=== PATIENT | male | born 1965 | race Caucasian/White ===

== ENCOUNTER 2018-03-29 13:00 | Inpatient (IN) | payer MEDICARE, MEDICAID ==
[2018-03-29] MEDS ORDERED: Acetaminophen 500 MG TAB ONE (13:51)
[2018-03-29] MEDS ORDERED: Ibuprofen 200 MG TAB ONE (13:51)
--- NOTE | 2018-03-29 14:20 | RAD ---
RADIOGRAPH CHEST 2 VIEWS: Date: 03/29/18 Time: 1351 hours HISTORY: 52-year-old male with fever and dyspnea. COMPARISON: None available. FINDINGS: There is a focal air space density in the right middle lobe. There is mild haziness, questionable ear ly infiltrate in left lower lobe. Cardiac size within normal limits. No pulmonary edema, pleural effu jacek, or pneumothorax. IMPRESSION: 1. Right middle lobe pneumonia 2. Questionable early left lower lobe pneumonia. RADHA [] POS: JEAN CARLOS
[2018-03-29 14:35] LABS: #Eosinphils 0.1 thou/uL (0.0-0.7); #Lymphocytes 0.8 thou/uL (1.20-3.40); #Monocytes 0.2 thou/uL (0.11-0.59); #Neutrophils 8.9 thou/uL (1.40-6.50); %Basophils 0.1 % (0.0-1.0); %Eosinophils 1.2 % (0.0-10.0); %Lymphocytes 7.8 % (21.0-51.0); Hemoglobin 15.4 g/dL (14.0-18.0); Mean Corpuscular Hemoglobin 27.3 pg (27.0-31.0); Mean Corpuscular Volume 85.1 fL (78.0-98.0); Mean Platelet Volume 8.3 fL (7.4-10.4); Platelet Count 171 thou/uL (130-400); RBC Distribution Width 13.6 % (11.5-14.5); Red Blood Cell (RBC) Count 5.65 mill/uL (4.70-6.10)
[2018-03-29] MEDS ORDERED: Azithromycin 250 MG TAB ONE (14:44)
[2018-03-29] MEDS ORDERED: cefTRIAXone\\ROCEPHIN 2 GM VIAL ONE (14:44)
[2018-03-29 14:55] LABS: ALT (SGPT) 24 U/L (8-55); AST (SGOT) 32 U/L (5-34); Alkaline Phosphatase 69 U/L (40-150); Anion Gap 14 mmol/L (10-20); BUN (Urea Nitrogen) 10 mg/dL (8.4-25.7); Bilirubin, Total 0.5 mg/dL (0.2-1.2); Calc. Creatinine Clearance 0 mL/min (70-130); Calcium 9.3 mg/dL (7.8-10.44); Carbon Dioxide 23 mmol/L (22-29); Chloride 104 mmol/L (98-107); Estimated GFR-MDRD 45; Globulin 4.3 g/dL (2.4-3.5); Glucose 109 mg/dL (70-105); Potassium 4.1 mmol/L (3.5-5.1); Protein, Total 8.3 g/dL (6.0-8.3); Sodium 137 mmol/L (136-145)
[2018-03-29] MEDS ORDERED: HYDROcodone/Acetaminophen 5/325 mg Tablet PO PRN (18:43)
[2018-03-29] MEDS ORDERED: Ondansetron ODT 4 MG TAB PO PRN (18:43)
[2018-03-29] MEDS ORDERED: hydrALAZINE 20 MG/ML VIAL SLOW IVP PRN (18:43)
[2018-03-29] MEDS ORDERED: Ondansetron PF 4 MG/2 ML Vial IVP PRN (18:43)
[2018-03-29] MEDS ORDERED: Calcium Carbonate 500 MG ChewTAB PO PRN (18:43)
[2018-03-29] MEDS ORDERED: Senokot S 8.6-50 MG TAB PO PRN (18:43)
[2018-03-29] MEDS ORDERED: Polyethylene Glycol 3350 17 GM Packet PO PRN (18:47)
[2018-03-29] MEDS ORDERED: Benzonatate 100 MG CAP PO PRN (18:47)
[2018-03-29] MEDS ORDERED: Milk Of Magnesia 30 ML UDCUP PO PRN (18:47)
[2018-03-29] MEDS ORDERED: Eucerin (Mineral Oil/Petrolatum,White) 30 gm Jar TOP PRN (18:47)
[2018-03-29] MEDS ORDERED: Cepastat Lozenges 1 LOZ PO PRN (18:47)
--- NOTE | 2018-03-29 19:41 | HP ---
PRIMARY CARE PHYSICIAN: None. CHIEF COMPLAINT: Flu-like symptoms along with fever of one week duration. HISTORY OF PRESENT ILLNESS: The patient is a 52-year-old male with rheumatoid arthritis, currently not on treatment, presented to the emergency room with above symptoms. Over the last 1 week, the patient has intermittent fever along with chills. He had cough and sore throat. The cough was productive of thick whitish phlegm. He had intermittent chills as well. The patient was getting shortness of breath on moderate exertion. He also complained of wheezing and chest tightness at times. He denies any diaphoresis, nausea, vomiting, recent immobilization, travel. No sick contacts reported. In the emergency room, his initial vital signs showed temperature 102, with pulse rate of 125, blood pressure 193/119, with O2 saturation 100% on room air, respiration of 36. His chest x-ray was consistent with right middle lobe pneumonia with questionable early left lower lobe pneumonia. Influenza testing was negative. He received ceftriaxone with azithromycin in the emergency room with IV fluids. PAST MEDICAL HISTORY: 1. Rheumatoid arthritis per patient's report. His arthritis is mainly in bilateral knees and left shoulder. 2. History of alcohol abuse. 3. Anxiety and depression. PAST SURGICAL HISTORY: Bilateral knee surgeries. ALLERGIES: THE PATIENT IS ALLERGIC TO FLEXERIL. CURRENT HOME MEDICATION: The patient takes [id number] Aleve. SOCIAL HISTORY: The patient is recovering alcoholic. He has been sober for three years, but denies current use of smoking or drug use. FAMILY HISTORY: Negative for premature coronary artery disease. REVIEW OF SYSTEMS: All other review of systems were reviewed and were found negative. PHYSICAL EXAMINATION: VITAL SIGNS: As discussed above. GENERAL: A 52-year-old male with intermittent coughing. Minimal audible wheezing noted. HEENT: Head atraumatic, normocephalic. Sclerae anicteric. Moist mucous membranes. No oral lesion. NECK: Supple. No JVD appreciated. No carotid bruit. LUNGS: Showed right-sided rales and rhonchi with scattered wheezing. No significant accessory muscle use while resting. HEART: S1 and S2 present. Tachycardic. No rubs, gallops, or significant murmurs appreciated. ABDOMEN: Soft. Bowel sounds present. EXTREMITIES: No edema or calf tenderness. NEUROLOGIC: Grossly nonfocal. Moves all 4 extremities. PSYCHIATRIC: Alert, awake, and oriented x3. SKIN: Warm and dry. LYMPH NODES: No palpable lymph nodes in the neck. LABORATORY FINDINGS: CBC showed WBC 10 with hemoglobin 15.4, hematocrit 48.1 with platelet count 171. Neutrophil was 89%. Chemistry showed sodium 137, potassium 4.1, chloride 104, bicarb 23, BUN 10, creatinine 1.61. Influenza testing was negative. DIAGNOSTIC DATA: Chest x-ray by my review showed right middle lobe infiltrate with questionable early left lower lobe infiltrate. EKG by my review showed sinus tachycardia. IMPRESSION: 1. Sepsis, secondary to pneumonia, suspected pneumococcal. 2. Sinus tachycardia, secondary to #1. 3. History of alcohol abuse. 4. Anxiety and depression. The patient denies any suicidal ideation. 5. Acute kidney injury, probably secondary to nonsteroidal anti-inflammatory drugs use along with sepsis. PLAN: The patient will be monitored on the medical floor. We will continue ceftriaxone and azithromycin. We will add nebulizer treatment. IV fluids for acute kidney injury. We will repeat labs in a.m. Vital signs every 4 hourly. Other p.r.n. medications. Plan of care was discussed with the patient and the family at the bedside. They stated understanding. Job ID: [id number]
[2018-03-29] MEDS: guaiFENesin ER 600 MG TAB PO SCH (20:53)
[2018-03-29] MEDS: Sodium Chloride 0.9% 1,000 ML IV SCH (20:55)
[2018-03-29 22:53] VITALS: BMI 30.1
[2018-03-30 03:36] LABS: Legionella Urinary Ag Negative (Negative); Strep pneumo Urine Ag POSITIVE (NEGATIVE)
[2018-03-30] MEDS: Acetaminophen 325 MG TAB PO PRN ×2 (05:35→19:54)
[2018-03-30] MEDS: Sodium Chloride 0.9% 1,000 ML IV SCH (05:35)
[2018-03-30 06:36] LABS: Anion Gap 12 mmol/L (10-20); BUN (Urea Nitrogen) 17 mg/dL (8.4-25.7); Calc. Creatinine Clearance 72 mL/min (70-130); Calcium 8.2 mg/dL (7.8-10.44); Carbon Dioxide 23 mmol/L (22-29); Chloride 108 mmol/L (98-107); Estimated GFR-MDRD 49; Glucose 128 mg/dL (70-105); Potassium 4.6 mmol/L (3.5-5.1); Sodium 138 mmol/L (136-145)
[2018-03-30] MEDS: guaiFENesin ER 600 MG TAB PO SCH ×2 (08:07→19:54)
[2018-03-30 08:15] LABS: Band 47 % (5-11); Hemoglobin 13.6 g/dL (14.0-18.0); Lymphocytes 18 % (21-51); MDiff Complete? YES; Mean Corpuscular HGB CONC 32.3 g/dL (32.0-36.0); Mean Corpuscular Volume 86.7 fL (78.0-98.0); Mean Platelet Volume 8.1 fL (7.4-10.4); Metamyelocyte 5 % (0-0); Monocytes 3 % (0-10); Neutrophil 27 % (42-75); Platelet Count 137 thou/uL (130-400); RBC Distribution Width 13.7 % (11.5-14.5); Red Blood Cell (RBC) Count 4.87 mill/uL (4.70-6.10); Reflex for Review?? YES; White Blood Cell (WBC) Count 12.3 thou/uL (4.8-10.8)
[2018-03-30] MEDS ORDERED: cefTRIAXone\\ROCEPHIN 2 GM in Sodium Chloride 0.9% 100 ML IVPB SCH (09:00)
[2018-03-30] MEDS ORDERED: Azithromycin 500 MG in Sodium Chloride 0.9% 250 ML 250 ML IVPB SCH (09:00)
[2018-03-30] MEDS: Sodium Chloride 0.45% 1,000 ML IV SCH ×2 (10:17→15:50)
[2018-03-30] MEDS ORDERED: Saccharomyces boulardii 250 MG CAP PO SCH (11:00)
--- NOTE | 2018-03-30 13:29 | PDOC.PN ---
- Subjective Encounter Start Date: 03/30/18 Encounter Start Time: 11:00 Patient seen and examined for Sepsis/Pneumonia. Dry cough. SOB on mild exertion. No new complaints. No overnight events - Objective Resuscitation Status - Order Detail: 03/29/18 18:43 Resuscitation Status Routine Resuscitation Status: FULL: Full Resuscitation MAR Reviewed: Yes Vital Signs & Weight: Vital Signs (12 hours) Temp Pulse Resp BP BP Pulse Ox 03/30/18 12:00 97.7 F 96 18 140/84 97 03/30/18 10:51 86 20 03/30/18 08:00 95 03/30/18 07:33 97.9 F 92 18 119/74 95 03/30/18 06:26 96 03/30/18 06:24 91 24 H 96 03/30/18 04:00 97.7 F 98 20 139/90 96 03/30/18 02:14 24 H 92 L Weight Weight 198 lb I&O: 03/29/18 03/30/18 03/31/18 06:59 06:59 06:59 Intake Total 2340 240 Output Total 500 Balance 1840 240 Result Diagrams: 03/30/18 06:01 03/30/18 06:01 Phys Exam - Physical Examination Constitutional: NAD Respiratory: no wheezing Rhonchi and rales at R base Cardiovascular: RRR, no rub Gastrointestinal: soft, non-tender, positive bowel sounds Musculoskeletal: no edema Neurological: moves all 4 limbs Dx/Plan (1) Sepsis due to pneumonia Code(s): J18.9 - PNEUMONIA, UNSPECIFIED ORGANISM; A41.9 - SEPSIS, UNSPECIFIED ORGANISM Status: Acute (2) CAP (community acquired pneumonia) due to Pneumococcus Code(s): J13 - PNEUMONIA DUE TO STREPTOCOCCUS PNEUMONIAE Status: Acute (3) Acute renal failure superimposed on stage 3 chronic kidney disease Code(s): N17.9 - ACUTE KIDNEY FAILURE, UNSPECIFIED; N18.3 - CHRONIC KIDNEY DISEASE, STAGE 3 (MODERATE) Status: Acute (4) Anxiety and depression Code(s): F41.9 - ANXIETY DISORDER, UNSPECIFIED; F32.9 - MAJOR DEPRESSIVE DISORDER, SINGLE EPISODE, UNSPECIFIED Status: Chronic (5) Obesity (BMI 30.0-34.9) Code(s): E66.9 - OBESITY, UNSPECIFIED Status: Chronic - Plan out of bed/ambulate, DVT proph w/SCDs Change IVF to 1/2 NS -: CXR in AM -: Cont Ceftriaxone and Azithromycin -: AM labs -: Cont current meds as below, Ambulate Review of Systems - Review of Systems Respiratory: Cough, Dry, SOB with Excertion Cardiovascular: negative: chest pain, palpitations, orthopnea, paroxysmal nocturnal dyspnea, edema, light headedness, other Gastrointestinal: negative: Nausea, Vomiting, Abdominal Pain, Diarrhea, Constipation, Melena, Hematochezia, Other - Medications/Allergies Allergies/Adverse Reactions: Allergies Allergy/AdvReac Type Severity Reaction Status Date / Time cyclobenzaprine Allergy Verified 03/30/18 02:21 [From Flexeril] Medications: Current Medications Acetaminophen (Tylenol) 650 mg PO Q4H PRN PRN Reason: Headache/Fever/Mild Pain (1-3) Last Admin: 03/30/18 05:35 Dose: 650 mg Hydrocodone Bitart/Acetaminophen ([place] 5/325) 1 tab PO Q6H PRN PRN Reason: Moderate Pain (4-6) Albuterol/Ipratropium (Duoneb) 3 ml NEB [id number] [facility] Last Admin: 03/30/18 10:51 Dose: 3 ml Benzonatate (Tessalon) 100 mg PO TID PRN PRN Reason: Cough Calcium Carbonate (Tums) 1,000 mg PO Q4H PRN PRN Reason: Heartburn or Indigestion Clonidine (Catapres) 0.1 mg PO Q4H PRN PRN Reason: Systolic BP > 180 Guaifenesin (Mucinex) 600 mg PO Q12HR [facility] Last Admin: 03/30/18 08:07 Dose: 600 mg Guaifenesin (Robitussin Sf) 200 mg PO Q4H PRN PRN Reason: Cough Hydralazine HCl (Apresoline) 10 mg SLOW IVP Q4H PRN PRN Reason: SBP Greater Than 180 Azithromycin 500 mg/ Sodium (Chloride) 250 mls @ 250 mls/hr IVPB 1500 CANDACE Ceftriaxone Sodium 2 gm/ (Sodium Chloride) 100 mls @ 200 mls/hr IVPB 1400 CANDACE Sodium Chloride (1/2 Normal Saline) 1,000 mls @ 100 mls/hr IV .Q10H [facility] Last Admin: 03/30/18 10:17 Dose: Not Given Magnesium Hydroxide (Milk Of Magnesium) 30 ml PO DAILYPRN PRN PRN Reason: Constipation Mineral Oil/White Petrolatum (Eucerin Cream) 0 gm TOP BIDPRN PRN PRN Reason: Dry Skin Ondansetron HCl (Zofran Odt) 4 mg PO Q6H PRN PRN Reason: Nausea/Vomiting Ondansetron HCl (Zofran) 4 mg IVP Q6H PRN PRN Reason: Nausea/Vomiting Polyethylene Glycol (Miralax) 17 gm PO DAILY PRN PRN Reason: Constipation Saccharomyces Boulardii (Florastor) 250 mg PO DAILY CANDACE Senna/Docusate Sodium (Senokot S) 2 tab PO BID PRN PRN Reason: Constipation Sodium Chloride (Flush - Normal Saline) 10 ml IVF PRN PRN PRN Reason: Saline Flush Throat Lozenges (Cepastat Lozenges) 1 maida PO Q2H PRN PRN Reason: Sore Throat
[2018-03-30] MEDS: cefTRIAXone\\ROCEPHIN 2 GM in Sodium Chloride 0.9% 100 ML IVPB SCH (14:36)
[2018-03-30] MEDS: Azithromycin 500 MG in Sodium Chloride 0.9% 250 ML 250 ML IVPB SCH (15:46)
[2018-03-30] MEDS: Diabetic Tussin 200 MG/10 ML UDCUP PO PRN (19:54)
[2018-03-31] MEDS: Sodium Chloride 0.45% 1,000 ML IV SCH (05:30)
[2018-03-31 08:07] LABS: #Eosinphils 0.1 thou/uL (0.0-0.7); #Lymphocytes 1.9 thou/uL (1.20-3.40); #Monocytes 0.5 thou/uL (0.11-0.59); #Neutrophils 11.4 thou/uL (1.40-6.50); %Basophils 0.1 % (0.0-1.0); %Eosinophils 0.4 % (0.0-10.0); %Lymphocytes 13.5 % (21.0-51.0); %Monocytes 3.3 % (0.0-10.0); %Neutrophils 82.7 % (42.0-75.0); Hemoglobin 12.6 g/dL (14.0-18.0); Mean Corpuscular HGB CONC 31.6 g/dL (32.0-36.0); Mean Corpuscular Hemoglobin 27.2 pg (27.0-31.0); Mean Platelet Volume 7.9 fL (7.4-10.4); Platelet Count 140 thou/uL (130-400); RBC Distribution Width 13.6 % (11.5-14.5); Red Blood Cell (RBC) Count 4.65 mill/uL (4.70-6.10); White Blood Cell (WBC) Count 13.8 thou/uL (4.8-10.8)
[2018-03-31 08:31] LABS: Anion Gap 9 mmol/L (10-20); BUN (Urea Nitrogen) 14 mg/dL (8.4-25.7); Calc. Creatinine Clearance 83 mL/min (70-130); Calcium 8.9 mg/dL (7.8-10.44); Carbon Dioxide 23 mmol/L (22-29); Chloride 112 mmol/L (98-107); Estimated GFR-MDRD 57; Glucose 113 mg/dL (70-105); Potassium 4.7 mmol/L (3.5-5.1); Sodium 139 mmol/L (136-145)
[2018-03-31] MEDS ORDERED: Sodium Chloride 0.45% 1,000 ML IV SCH (08:56)
[2018-03-31] MEDS: Saccharomyces boulardii 250 MG CAP PO SCH (09:08)
[2018-03-31] MEDS: guaiFENesin ER 600 MG TAB PO SCH ×2 (09:08→21:12)
[2018-03-31] MEDS ORDERED: Amlodipine 5 MG TAB PO SCH (09:15)
--- NOTE | 2018-03-31 12:21 | PDOC.PN ---
- Subjective Encounter Start Date: 03/31/18 Encounter Start Time: 09:00 Patient seen and examined for Sepsis due to Pneumonia. Feels better. Cough + No new complaints. No overnight events - Objective Resuscitation Status - Order Detail: 03/29/18 18:43 Resuscitation Status Routine Resuscitation Status: FULL: Full Resuscitation MAR Reviewed: Yes Vital Signs & Weight: Vital Signs (12 hours) Temp Pulse Resp BP Pulse Ox 03/31/18 11:10 97.8 F 93 18 176/98 H 98 03/31/18 11:07 94 20 96 03/31/18 08:00 97.4 F L 94 18 182/103 H 96 03/31/18 06:59 92 16 94 L 03/31/18 04:05 97.4 F L 90 20 94 L Weight Weight 198 lb I&O: 03/30/18 03/31/18 04/01/18 06:59 06:59 06:59 Intake Total 2340 2520 Output Total 500 Balance 1840 2520 Result Diagrams: 03/31/18 07:58 03/31/18 07:58 Phys Exam - Physical Examination Constitutional: NAD Respiratory: no wheezing Rales at Rt base Cardiovascular: RRR, no rub Gastrointestinal: soft, non-tender, positive bowel sounds Musculoskeletal: no edema Neurological: moves all 4 limbs Dx/Plan (1) Sepsis due to pneumonia Code(s): J18.9 - PNEUMONIA, UNSPECIFIED ORGANISM; A41.9 - SEPSIS, UNSPECIFIED ORGANISM Status: Acute (2) CAP (community acquired pneumonia) due to Pneumococcus Code(s): J13 - PNEUMONIA DUE TO STREPTOCOCCUS PNEUMONIAE Status: Acute (3) Hypertension, uncontrolled Code(s): I10 - ESSENTIAL (PRIMARY) HYPERTENSION Status: Acute (4) Acute renal failure superimposed on stage 3 chronic kidney disease Code(s): N17.9 - ACUTE KIDNEY FAILURE, UNSPECIFIED; N18.3 - CHRONIC KIDNEY DISEASE, STAGE 3 (MODERATE) Status: Acute Comment: improving (5) Anxiety and depression Code(s): F41.9 - ANXIETY DISORDER, UNSPECIFIED; F32.9 - MAJOR DEPRESSIVE DISORDER, SINGLE EPISODE, UNSPECIFIED Status: Chronic (6) Obesity (BMI 30.0-34.9) Code(s): E66.9 - OBESITY, UNSPECIFIED Status: Chronic - Plan DVT proph w/SCDs * Cont Atbx * Add Amlodipine * DC in 1-2 days if stable * Cont current meds as below * AM labs Microbiology 03/29/18 13:47 Nasal swab Influenza Types A,B Direct EIA - Final 03/29/18 15:01 Venous blood - Right Hand Blood Culture - Preliminary 03/29/18 15:01 Venous blood - Left Arm Blood Culture - Preliminary Specimen has been received and culture in progress. No Growth to date. Laboratory Tests 03/30/18 03/30/18 03/30/18 02:05 02:05 06:01 Band Neuts % (Manual) 47 H Ur L.pneumophila Ag Negative Ur Strep pneumoniae Ag POSITIVE A Review of Systems - Review of Systems Cardiovascular: negative: chest pain, palpitations, orthopnea, paroxysmal nocturnal dyspnea, edema, light headedness, other Gastrointestinal: negative: Nausea, Vomiting, Abdominal Pain, Diarrhea, Constipation, Melena, Hematochezia, Other - Medications/Allergies Allergies/Adverse Reactions: Allergies Allergy/AdvReac Type Severity Reaction Status Date / Time cyclobenzaprine Allergy Verified 03/30/18 02:21 [From Flexeril] Medications: Current Medications Acetaminophen (Tylenol) 650 mg PO Q4H PRN PRN Reason: Headache/Fever/Mild Pain (1-3) Last Admin: 03/30/18 19:54 Dose: 650 mg Hydrocodone Bitart/Acetaminophen ([place] 5/325) 1 tab PO Q6H PRN PRN Reason: Moderate Pain (4-6) Albuterol/Ipratropium (Duoneb) 3 ml NEB [id number] [facility] Last Admin: 03/31/18 11:07 Dose: 3 ml Amlodipine Besylate (Norvasc) 5 mg PO DAILY [facility] Benzonatate (Tessalon) 100 mg PO TID PRN PRN Reason: Cough Calcium Carbonate (Tums) 1,000 mg PO Q4H PRN PRN Reason: Heartburn or Indigestion Clonidine (Catapres) 0.1 mg PO Q4H PRN PRN Reason: Systolic BP > 180 Guaifenesin (Mucinex) 600 mg PO Q12HR [facility] Last Admin: 03/31/18 09:08 Dose: 600 mg Guaifenesin (Robitussin Sf) 200 mg PO Q4H PRN PRN Reason: Cough Last Admin: 03/30/18 19:54 Dose: 200 mg Hydralazine HCl (Apresoline) 10 mg SLOW IVP Q4H PRN PRN Reason: SBP Greater Than 180 Azithromycin 500 mg/ Sodium (Chloride) 250 mls @ 250 mls/hr IVPB 1500 [facility] Last Admin: 03/30/18 15:46 Dose: 250 mls Ceftriaxone Sodium 2 gm/ (Sodium Chloride) 100 mls @ 200 mls/hr IVPB 1400 [facility] Last Admin: 03/30/18 14:36 Dose: 100 mls Magnesium Hydroxide (Milk Of Magnesium) 30 ml PO DAILYPRN PRN PRN Reason: Constipation Mineral Oil/White Petrolatum (Eucerin Cream) 0 gm TOP BIDPRN PRN PRN Reason: Dry Skin Ondansetron HCl (Zofran Odt) 4 mg PO Q6H PRN PRN Reason: Nausea/Vomiting Ondansetron HCl (Zofran) 4 mg IVP Q6H PRN PRN Reason: Nausea/Vomiting Polyethylene Glycol (Miralax) 17 gm PO DAILY PRN PRN Reason: Constipation Saccharomyces Boulardii (Florastor) 250 mg PO DAILY [facility] Last Admin: 03/31/18 09:08 Dose: 250 mg Senna/Docusate Sodium (Senokot S) 2 tab PO BID PRN PRN Reason: Constipation Sodium Chloride (Flush - Normal Saline) 10 ml IVF PRN PRN PRN Reason: Saline Flush Last Admin: 03/31/18 09:10 Dose: 10 ml Throat Lozenges (Cepastat Lozenges) 1 maida PO Q2H PRN PRN Reason: Sore Throat
[2018-03-31] MEDS: cefTRIAXone\\ROCEPHIN 2 GM in Sodium Chloride 0.9% 100 ML IVPB SCH (14:24)
[2018-03-31] MEDS: Azithromycin 500 MG in Sodium Chloride 0.9% 250 ML 250 ML IVPB SCH (15:22)
[2018-03-31] MEDS: cloNIDine 0.1 MG TAB PO PRN (16:51)
[2018-04-01] MEDS: Diabetic Tussin 200 MG/10 ML UDCUP PO PRN (06:02)
[2018-04-01 06:50] LABS: Anion Gap 13 mmol/L (10-20); BUN (Urea Nitrogen) 15 mg/dL (8.4-25.7); Calc. Creatinine Clearance 74 mL/min (70-130); Calcium 9.7 mg/dL (7.8-10.44); Carbon Dioxide 23 mmol/L (22-29); Chloride 106 mmol/L (98-107); Estimated GFR-MDRD 51; Glucose 158 mg/dL (70-105); Potassium 4.3 mmol/L (3.5-5.1); Sodium 138 mmol/L (136-145)
[2018-04-01] MEDS: guaiFENesin ER 600 MG TAB PO SCH (08:49)
[2018-04-01] MEDS: Saccharomyces boulardii 250 MG CAP PO SCH (08:49)
[2018-04-01] MEDS ORDERED: Amlodipine 5 MG TAB PO SCH (09:00)
[2018-04-01] MEDS: cefTRIAXone\\ROCEPHIN 2 GM in Sodium Chloride 0.9% 100 ML IVPB SCH (13:26)
[2018-04-01] MEDS: Azithromycin 500 MG in Sodium Chloride 0.9% 250 ML 250 ML IVPB SCH (14:28)
[2018-04-01] MEDS: cloNIDine 0.1 MG TAB PO PRN (14:30)
[2018-04-01 17:06] VITALS: BP 164/96; TEMP 98.3
--- NOTE | 2018-04-02 10:36 | DIS ---
DATE OF ADMISSION: 03/29/2018 DATE OF DISCHARGE: 04/01/2018 DISCHARGE DISPOSITION: Home. FOLLOWUP: Follow up with primary care physician at [facility] in 1 week. The patient was seen and examined on the day of discharge. Denies any new complaints. No chest pain, shortness of breath, palpitations, fevers, or chills reported. DISCHARGE MEDICATIONS: 1. Omnicef 300 mg twice a day for 5 days. 2. Azithromycin 500 mg daily for next 4 days. 3. Carvedilol 6.25 mg b.i.d. 4. Clonidine as needed for elevated blood pressure. 5. Lisinopril 5 mg daily. Basic metabolic profile after 2 weeks is recommended. Primary care physician advised to follow. Repeat chest x-ray after 4 to 6 weeks is recommended. Primary care physician advised to follow. BRIEF HOSPITAL COURSE: The patient is a 52-year-old male with rheumatoid arthritis per patient report. Per patient report, presented to the hospital with flu-like symptoms with fever. Please refer to the history and physical for further details. The patient was admitted to the hospital with a diagnosis of sepsis secondary to pneumonia. Urine for Legionella was negative. However, strep pneumoniae came back positive. He was placed on ceftriaxone with azithromycin with good improvement in his symptoms. He has been afebrile over the last 48 hours. His blood pressure was found to be elevated. Please note, the patient was on no antihypertensives prior to this admission. His blood pressure improved with lisinopril along with carvedilol. He will continue these medications at home. He was advised to monitor his blood pressure on a daily basis and maintain a log. He appears stable for discharge. FINAL DIAGNOSES: 1. Sepsis secondary to pneumococcal pneumonia. 2. Uncontrolled hypertension. The patient has been started on carvedilol and lisinopril. 3. Chronic kidney disease stage 3 with a creatinine 1.46. 4. Anxiety and depression. 5. Obesity with a BMI of 30.1. PLAN: Plan of care was discussed with the patient in detail. He stated understanding. Job ID: [id number]
== END 2018-04-01 17:44 | disposition home or self-care (01) | DRG 871 ==
LOC: ERS 13:00 → T4-A 15:03
PROVIDERS: ADMIT Internal Medicine; ATTEND Internal Medicine
DX: A40.3 Sepsis due to Streptococcus pneumoniae (principal); J13 Pneumonia due to Streptococcus pneumoniae; N17.9 Acute kidney failure, unspecified; E66.9 Obesity, unspecified; N18.3 Chronic kidney disease, stage 3 (moderate); I12.9 Hypertensive chronic kidney disease with stage 1 through stage 4 chronic kidney disease, or unspecified chronic kidney disease; M06.9 Rheumatoid arthritis, unspecified; Z79.1 Long term (current) use of non-steroidal anti-inflammatories (NSAID); Z88.8 Allergy status to other drugs, medicaments and biological substances; Z68.30 Body mass index [BMI] 30.0-30.9, adult
CPT/HCPCS: 36415; 71046; 80048; 80053; 83735; 85025; 85060; 87040; 87804; 87899; 90471; 90686; 90732; 93005; 94640; 96361; 96365; G0008; G0009; J0456; J0696; J7050; J7620